=== PATIENT | male | born 2000 | race Hispanic/Latino ===

== ENCOUNTER 2022-03-12 13:19 | Emergency (ER) | payer OTHER ==
--- NOTE | 2022-03-12 13:30 | EDPHYS ---
Physician Documentation [facility] Name: Zack Rodrigues Age: 21 yrs Sex: Male : 2000 Arrival Date: 03/12/2022 Time: 13:23 Bed 25 Private MD: ED Physician Brock Augustine HPI: 03/12 13:27 This 21 yrs old Male presents to ER via Unassigned with complaints of Suicidal ms3 Ideation. 13:27 The patient presents to the emergency department with suicide ideation, and the patient ms3 has a plan, to overdose with medications. Onset: The symptoms/episode began/occurred today. Past psychiatric history: Prior diagnosis: schizophrenia, Psychiatric medications include: unknown, the patient has a previous inpatient psychiatric history, the patient's last psychiatric treatment was At inpatient psychiatric facility. Associated signs and symptoms: Pertinent negatives: abdominal pain, headache, nausea, shortness of breath, vomiting. Severity of symptoms: At their worst the symptoms were moderate in the emergency department the symptoms are unchanged Pain is currently a 0 / 10. [facility] states patient took 5 Fluoxetine pills.. Historical: - Allergies: 13:33 No Known Allergies; eh3 - Home Meds: 13:33 Fluoxetine Oral [Active]; eh3 - PMHx: 13:33 PTSD; Schizophrenia; eh3 - PSHx: 13:33 Appendectomy; eh3 - Immunization history:: Adult Immunizations not up to date. - Social history:: Smoking status: Patient reports the use of cigarette tobacco products, denies chronic smoking, but will smoke occasionally, Patient uses street drugs, marijuana, Patient/guardian denies using alcohol. ROS: 13:27 Constitutional: Negative for fever, and chills. Neck: Negative for injury, pain, and ms3 swelling, Cardiovascular: Negative for chest pain, and palpitations. Respiratory: Negative for shortness of breath, cough, wheezing, and pleuritic chest pain, Abdomen/GI: Negative for abdominal pain, nausea, vomiting, diarrhea, and constipation, MS/Extremity: Negative for injury and deformity, Skin: Negative for injury, rash, and discoloration. 13:27 Psych: Positive for suicidal ideation. 13:27 All other systems are negative. Exam: 13:27 Constitutional: This is a well developed, well nourished patient who is awake, alert, ms3 and in no acute distress. Head/Face: Normocephalic, atraumatic. Eyes: Pupils equal round and reactive to light, extra-ocular motions intact. Lids and lashes normal. Conjunctiva and sclera are non-icteric and not injected. Periorbital areas with no swelling, redness, or edema. Chest/axilla: Normal chest wall appearance and motion. Nontender with no deformity. Cardiovascular: Regular rate and rhythm with a normal S1 and S2. No gallops, murmurs, or rubs. Normal PMI, no JVD. No pulse deficits. Respiratory: Lungs have equal breath sounds bilaterally, clear to auscultation and percussion. No rales, rhonchi or wheezes noted. No increased work of breathing, no retractions or nasal flaring. Abdomen/GI: Soft, non-tender, with normal bowel sounds. No distension or tympany. No guarding or rebound. No evidence of tenderness throughout. Skin: Warm, dry with normal turgor. Normal color with no rashes, no lesions, and no evidence of cellulitis. MS/ Extremity: Pulses equal, no cyanosis. Neurovascular intact. Full, normal range of motion. 14:05 ECG was reviewed by the Attending Physician. mt3 Vital Signs: 13:24 BP 110 / 84; Pulse 87; Resp 18; Temp 98.3(O); Pulse Ox 99% on R/A; Weight 74.84 kg; [facility] Height 5 ft. 7 in. (170.18 cm); 18:00 BP 113 / 60; Pulse 83; Resp 18; Temp 98.5(O); Pulse Ox 97% on R/A; [facility] 13:24 Body Mass Index 25.84 (74.84 kg, 170.18 cm) [facility] MDM: 13:25 Patient medically screened. kb 13:27 Differential diagnosis: acute psychotic break, depression, psychosis secondary to ms3 non-compliance. 16:44 Data reviewed: vital signs, nurses notes, lab test result(s), EKG, and as a result, I mt3 will transfer patient. Counseling: I had a detailed discussion with the patient and/or guardian regarding: the historical points, exam findings, and any diagnostic results supporting the discharge/admit diagnosis, lab results, the need to transfer to another facility. ED course: Patient accepted to Dr Jennifer Nagy. 03/12 13:25 Order name: Acetaminophen; Complete Time: 15:32 kb 03/12 13:25 Order name: Basic Metabolic Panel; Complete Time: 15:32 kb 03/12 13:25 Order name: CBC with Diff; Complete Time: 15:32 kb 03/12 13:25 Order name: ETOH Level; Complete Time: 15:32 kb 03/12 13:25 Order name: Hepatic Function; Complete Time: 15:32 kb 03/12 13:25 Order name: PT-INR; Complete Time: 15:32 kb 03/12 13:25 Order name: Ptt, Activated; Complete Time: 15:32 kb 03/12 13:25 Order name: Salicylate; Complete Time: 15:32 kb 03/12 13:25 Order name: Urine Drug Screen; Complete Time: 15:32 kb 03/12 13:25 Order name: EKG; Complete Time: 13:28 kb 03/12 13:25 Order name: EKG - Nurse/Tech; Complete Time: 14:12 kb 03/12 13:27 Order name: SARS RAPID; Complete Time: 15:32 ms3 03/12 13:54 Order name: Urine Dipstick-Ancillary; Complete Time: 15:32 EDMS 03/12 14:16 Order name: Diet Finger Food; Complete Time: 14:16 eh3 03/12 13:25 Order name: IV Saline Lock; Complete Time: 14:12 kb 03/12 13:25 Order name: Labs collected and sent; Complete Time: 14:12 kb 03/12 13:25 Order name: Suicide Precautions; Complete Time: 13:39 kb 03/12 13:25 Order name: Suicide Screening ([place]); Complete Time: 13:39 kb 03/12 13:25 Order name: Urine Dipstick-Ancillary (obtain specimen); Complete Time: 14:18 kb EC:05 Rate is 75 beats/min. Rhythm is regular. QRS [place] is Normal. [place] interval is normal. QRS ms3 interval is normal. Clinical impression: Normal ECG. Interpreted by me. Reviewed by me. Administered Medications: No medications were administered Disposition Summary: 03/12/22 13:30 Transfer Ordered Transfer Location: [facility] Facility ms3 Reason: Higher level of care ms3 Condition: Stable ms3 Problem: new ms3 Symptoms: are unchanged ms3 Accepting Physician: Dr Willson(03/12/22 18:14) ss Diagnosis - Suicidal ideations ms3 - Depression ms3 Forms: - Medication Reconciliation Form ms3 - SBAR form ms3 Signatures: Dispatcher [employer] EDKristina Escobar, PRESCHOOL PRINCIPAL-C PRESCHOOL PRINCIPAL-Tiki Martin RN RN ss Brock Augustine, DO ms3 Elvi Patino RN RN eh3 Corrections: (The following items were deleted from the chart) 16:44 13:30 Dr cedillo ms3 18:14 16:44 Dr Willson ms3 ss
--- OUTSIDE RECORDS SUMMARY | 2022-03-12 13:39 | XMS REPORT | Continuity of Care Document ---
:2000 Author Organization [facility] t Address [address] [place] [address] Care Team Providers Name Role Phone [place] Aleksander HORNE Primary Care Physician [phone] ALYSSA STRATTON Attending Clinician Unavailable MADIE AMARO Attending Clinician Unavailable Payers Payer Name Policy Type Policy Number Effective Date Expiration Date S ource [employer] [id number] 2018 00:00:00 Problems This patient has no known problems. Allergies, Adverse Reactions, Alerts Allergy Allergy Status Severity Reaction(s) Onset Inactive Treating Comm ents Source Name Type Date Date Clinician No Known DA Active U 2018-03 [facility] No Known DA Active U [facility] 1-28 [facility] Medications This patient has no known medications. Vital Signs Vital Name Observation Time Observation Value Comments Source BP Diastolic 2021-10-23 16:12:00 71 mm[Hg] Weight Measured 2021-10-23 16:12:00 173.80 pounds Height Measured 2021-10-23 16:12:00 67.00 inches Body Temperature 2021-10-23 16:12:00 98.40 degrees Heart Rate 2021-10-23 16:12:00 97.00 /min Respiratory Rate 2021-10-23 16:12:00 16.00 /min BP Systolic 2021-10-23 16:12:00 115 mm[Hg] Procedures This patient has no known procedures. Plan of Care Planned Activity Planned Date Details Comments Source Goal Plan of Care Note [code = 94107-8] Goal Plan of Care Note [code = 28028-2] Goal Plan of Care Note [code = 87917-5] Goal Plan of Care Note [code = 77241-7] Goal Plan of Care Note [code = 19399-8] Encounters Start End Encounter Admission Attending Care Care Encounter Source Date/Time Date/Time Type Type Clinicians Facility Department ID 2018-12-20 Inpatient [facility] [id number] H arris 11:48:06 Health 2021-10-23 2021-10-23 Outpatient [id number] 00:00:00 00:00:00 Visit [id number] 2021-07-05 2021-07-05 Emergency [facility] [id number] [place] 12:28:00 13:04:00 [facility] 2019-11-15 2019-11-16 Emergency E MADIE AMARO [facility] [address] 23:38:00 02:15:00 l [facility] l [facility] 2019-04-27 2019-04-27 Outpatient [facility] [id number] [place] 00:00:00 00:00:00 [facility] 2019-04-07 2019-04-07 Outpatient [facility] [id number] [place] 00:00:00 00:00:00 [facility] 2019-03-10 2019-03-10 Outpatient [facility] [id number] [place] 00:00:00 00:00:00 [facility] 2019-03-08 2019-03-08 Outpatient [facility] [id number] [place] 13:53:33 13:53:33 Health 2019-03-05 2019-03-05 Outpatient [facility] [id number] [place] 00:00:00 00:00:00 Health 2019-01-19 2019-01-19 Outpatient [facility] [id number] [place] 00:00:00 00:00:00 Health 2019-01-14 2019-01-14 Outpatient [facility] [id number] [place] 00:00:00 00:00:00 Health 2019-01-07 2019-01-07 Outpatient [facility] [id number] [place] 00:00:00 00:00:00 Health 2019-01-05 2019-01-05 Outpatient [facility] [id number] [place] 00:00:00 00:00:00 Health 2018-12-22 2018-12-22 Outpatient [facility] [id number] [place] 13:30:28 13:30:28 Health 2018-12-21 2018-12-21 Outpatient [facility] [id number] [place] 13:33:37 13:33:37 Health 2018-12-19 2018-12-19 Emergency [facility] [id number] [place] 16:54:26 16:54:26 Health Results Test Description Test Time Test Comments Results Result Comments Source HEMOGLOBIN A1c 2021-10-25 07:05:17 Test Item Value Reference Range Interpretation Comme nts HEMOGLOBIN A1c (test code = 35245) 5.3 % 4.2-5.6 CBC W/AUTO DIFF WITH [id number] 06:02:55 Test Item Value Reference Range Interpretation Comments WBC (test code = 6.0 K/UL 3.5-11.0 1001) RBC (test code = 5.23 M/UL 4.50-6.10 1002) HEMOGLOBIN (test code 15.8 G/DL 13.5-17.0 = 1003) HEMATOCRIT (test code 46.5 % 40.0-51.0 = 1004) MCV (test code = 88.9 fL 80.0-99.0 1005) MCH (test code = 30.2 PG 25.0-33.0 1006) MCHC (test code = 34.0 G/DL 31.0-36.0 1007) RDW (test code = 12.8 % 11.5-15.0 1038) NEUTROPHILS (test 54.8 % code = 1008) LYMPHOCYTES (test 29.8 % code = 1010) MONOCYTES (test code 12.9 % = 1011) EOSINOPHILS (test 0.5 % code = 1012) BASOPHILS (test code 1.2 % = 1013) IMMATURE GRANULOCYTES 0.8 % (test code = 1036) NUCLEATED RBCS (test 0.0 /100 WBC'S See_Comment [Aut omated code = 1065) message] The sy stem which generated this result transmitted reference range : 0.0. The refere nce range was not u sed to interpret th is result as normal/abnormal . PLATELET COUNT (test 367 K/UL 130-400 code = 1015) ABSOLUTE NEUTROPHILS 3.28 K/UL 1.50-7.50 (test code = 1066) ABSOLUTE LYMPHOCYTES 1.78 K/UL 1.00-4.00 (test code = 1067) ABSOLUTE MONOCYTES 0.77 K/UL 0.20-1.00 (test code = 1068) ABSOLUTE EOSINOPHILS 0.03 K/UL 0.00-0.50 (test code = 1040) ABSOLUTE BASOPHILS 0.07 K/UL 0.00-0.20 (test code = 1069) ABS IMMATURE 0.05 K/UL 0.00-0.10 GRANULOCYTES (test code = 1020) ABS NUCLEATED RBCS 0.00 K/UL 0.00-0.11 (test code = 60754) COMPREHENSIVE METABOLIC [id number] 05:56:45 Test Item Value Reference Range Interpretation Comments GLUCOSE (test code = 71 MG/DL 70-99 2216) BUN (test code = 10 MG/DL 6-20 2207) CREATININE (test 1.01 MG/DL 0.80-1.40 code = 2214) eGFR (2020 CKD-EPI) 108 >60 (test code = 14352) ML/MIN/1.73 CALC BUN/CREAT (test 10 RATIO 6-28 code = 2235) SODIUM (test code = 140 MEQ/L 299-644 6393) POTASSIUM (test code 4.0 MEQ/L 3.5-5.4 = 2227) CHLORIDE (test code 101 MEQ/L 95-107 = 2214) CARBON DIOXIDE (test 28 MEQ/L 19-31 code = 2206) CALCIUM (test code = 9.7 MG/DL 8.5-10.5 2208) PROTEIN, TOTAL (test 7.1 G/DL 6.1-8.3 code = 2229) ALBUMIN (test code = 5.0 G/DL 3.5-5.2 2200) CALC GLOBULIN (test 2.1 G/DL 1.9-3.7 code = 2240) CALC A/G RATIO (test 2.4 RATIO 1.0-2.6 code = 2234) BILIRUBIN, TOTAL 0.2 MG/DL See_Comment [Automated message] (test code = 2207) The [employer] which generated this result transmit luann reference range : <=1.2. The refe rence range was not u sed to interpret th is result as normal/abnormal . ALKALINE PHOSPHATASE 83 U/L 42-122 (test code = 4) AST (test code = 27 U/L 2217) ALT (test code = 32 U/L 2218) LIPID [id number] 05:56:45 Test Item Value Reference Range Interpretation Comments CHOLESTEROL (test 181 MG/DL <200 code = 2210) TRIGLYCERIDES (test 93 MG/DL <150 code = 2232) HDL CHOLESTEROL (test 61 MG/DL >39 code = 2220) CALC LDL CHOL (test 101 MG/DL <100 H NOTE: C ALCULATED LDL code = 2237) IS BASED ON NATALIE-GONG METHOD WHICHINCLUDES ADJUSTABLE TRIGLYCERIDE:VL DL CHOLESTEROL RAT IO.THIS FACTOR VARIES B Y MEASURED TRIGLY CERIDE AND NON-HDLCHOL ESTEROL CONCENTRATIONS WITH INCREASED CALCU LATED LDL SEENIN HIGH ER TRIGLYCERIDE OR LOWER NON-HDL SPECIME NS. FOR MOREINFORMATION , SEE CLIENT ANNOUNCE MENT AT [email or web address] RISK RATIO LDL/HDL 1.66 RATIO <3.55 UNLESS O THERWISE (test code = 2237) INDICATED , ALL TESTING PERFORMED [facility], [address] DIRECTOR: CATHERINE SMITH M.D. CLIA NUMBER [id number] CAP ACCREDITATION N O. [id number] HEMOGLOBIN [id number] 00:00:00 Test Item Value Reference Range Interpretation Comments HEMOGLOBIN A1c (test code = 93590) 5.3 % HEMOGLOBIN [id number] 00:00:00 Test Item Value Reference Range Interpretation Comments HEMOGLOBIN A1c (test code = 27070) 5.3 % CBC W/AUTO [id number] 00:00:00 Test Item Value Reference Range Interpretation Comments WBC (test code = 1001) 6.0 K/UL RBC (test code = 1002) 5.23 M/UL HEMOGLOBIN (test code = 1003) 15.8 G/DL HEMATOCRIT (test code = 1004) 46.5 % MCV (test code = 1005) 88.9 fL MCH (test code = 1006) 30.2 PG MCHC (test code = 1007) 34.0 G/DL RDW (test code = 1038) 12.8 % NEUTROPHILS (test code = 1008) 54.8 % LYMPHOCYTES (test code = 1010) 29.8 % MONOCYTES (test code = 1011) 12.9 % EOSINOPHILS (test code = 1012) 0.5 % BASOPHILS (test code = 1013) 1.2 % IMMATURE GRANULOCYTES (test 0.8 % code = 1036) NUCLEATED RBCS (test code = 0.0 /100WBC'S 1065) PLATELET COUNT (test code = 367 K/UL 1015) ABSOLUTE NEUTROPHILS (test code 3.28 K/UL = 1066) ABSOLUTE LYMPHOCYTES (test code 1.78 K/UL = 1067) ABSOLUTE MONOCYTES (test code = 0.77 K/UL 1068) ABSOLUTE EOSINOPHILS (test code 0.03 K/UL = 1040) ABSOLUTE BASOPHILS (test code = 0.07 K/UL 1069) ABS IMMATURE GRANULOCYTES (test 0.05 K/UL code = 1020) ABS NUCLEATED RBCS (test code = 0.00 K/UL 68455) CBC W/AUTO [id number] 00:00:00 Test Item Value Reference Range Interpretation Comments WBC (test code = 1001) 6.0 K/UL RBC (test code = 1002) 5.23 M/UL HEMOGLOBIN (test code = 1003) 15.8 G/DL HEMATOCRIT (test code = 1004) 46.5 % MCV (test code = 1005) 88.9 fL MCH (test code = 1006) 30.2 PG MCHC (test code = 1007) 34.0 G/DL RDW (test code = 1038) 12.8 % NEUTROPHILS (test code = 1008) 54.8 % LYMPHOCYTES (test code = 1010) 29.8 % MONOCYTES (test code = 1011) 12.9 % EOSINOPHILS (test code = 1012) 0.5 % BASOPHILS (test code = 1013) 1.2 % IMMATURE GRANULOCYTES (test 0.8 % code = 1036) NUCLEATED RBCS (test code = 0.0 /100WBC'S 1065) PLATELET COUNT (test code = 367 K/UL 1015) ABSOLUTE NEUTROPHILS (test code 3.28 K/UL = 1066) ABSOLUTE LYMPHOCYTES (test code 1.78 K/UL = 1067) ABSOLUTE MONOCYTES (test code = 0.77 K/UL 1068) ABSOLUTE EOSINOPHILS (test code 0.03 K/UL = 1040) ABSOLUTE BASOPHILS (test code = 0.07 K/UL 1069) ABS IMMATURE GRANULOCYTES (test 0.05 K/UL code = 1020) ABS NUCLEATED RBCS (test code = 0.00 K/UL 31674) COMPREHENSIVE METABOLIC [id number] 00:00:00 Test Item Value Reference Range Interpretation Comments GLUCOSE (test code = 2217) 71 MG/DL BUN (test code = 2208) 10 MG/DL CREATININE (test code = 2214) 1.01 MG/DL eGFR (2020 CKD-EPI) (test 108 ML/MIN/1.73 code = 19605) CALC BUN/CREAT (test code = 10 RATIO 2235) SODIUM (test code = 2231) 140 MEQ/L POTASSIUM (test code = 2228) 4.0 MEQ/L CHLORIDE (test code = 2215) 101 MEQ/L CARBON DIOXIDE (test code = 28 MEQ/L 2205) CALCIUM (test code = 2209) 9.7 MG/DL PROTEIN, TOTAL (test code = 7.1 G/DL 2228) ALBUMIN (test code = 2201) 5.0 G/DL CALC GLOBULIN (test code = 2.1 G/DL 0) CALC A/G RATIO (test code = 2.4 RATIO 4) BILIRUBIN, TOTAL (test code = 0.2 MG/DL 2206) ALKALINE PHOSPHATASE (test 83 U/L code = 2204) AST (test code = 2218) 27 U/L ALT (test code = 2219) 32 U/L LIPID [id number] 00:00:00 Test Item Value Reference Range Interpretation Comments CHOLESTEROL (test code = 2210) 181 MG/DL TRIGLYCERIDES (test code = 2232) 93 MG/DL HDL CHOLESTEROL (test code = 2220) 61 MG/DL CALC LDL CHOL (test code = 2237) 101 MG/DL RISK RATIO LDL/HDL (test code = 1.66 RATIO 2238) COMPREHENSIVE METABOLIC [id number] 00:51:00 Test Item Value Reference Range Interpretation Comments SODIUM (test code = NA) 142 mmol/l 134.0-147.0 N POTASSIUM (test code = K) 3.4 mmol/L 3.6-5.2 L CHLORIDE (test code = CL) 102 mmol/l 98.0-107.0 N CARBON DIOXIDE (test code = CO2) 27.6 mmol/l 21.0-33.0 N ANION GAP (test code = GAP) 15.8 0-20 N GLUCOSE (test code = GLU) 110 mg/dl 70.0-110.0 N BLOOD UREA NITROGEN (test code = 10 mg/dl 7.0-18.0 N BUN) CREATININE (test code = CREAT) 0.86 mg/dL 0.60-1.30 N GFR NON BLACK (test code = 120 mL/min 110-120 N GFRNONBLACK) GFR BLACK (test code = GFRBLACK) 146 mL/min 133-145 H TOTAL PROTEIN (test code = PROT) 7.4 GM/DL 6.0-8.1 N ALBUMIN (test code = ALB) 4.3 gm/dL 3.2-4.7 N CALCIUM (test code = CA) 8.8 mg/dl 8.0-10.5 N BILIRUBIN TOTAL (test code = 0.2 mg/dl 0.0-1.0 N BILT) SGOT/AST (test code = AST) 16 Units/L 15.0-37.0 N SGPT/ALT (test code = ALT) 22 Units/L 12.0-78.0 N ALKALINE PHOSPHATASE TOTAL (test 81 Units/L 50.0-136.0 N code = ALKP) [id number] 00:51:00 Test Item Value Reference Range Interpretation Comments ACETAMINOPHEN (test <2.0 mcg/ml 10.0-30.0 L Result i s in code = ACET) Microgram per milliliter. [id number] 00:51:00 Test Item Value Reference Range Interpretation Comments SALICYLATE (test code = NATASHA) 0.6 mg/dl 2.8-20.0 L [id number] 00:51:00 Test Item Value Reference Range Interpretation Comments ALCOHOL (test code 0.00 gm/dL 0.00-0.00 N ETHYL ALC OHOL VALUES - = ALC) INTERPRETATION: 0.050 GM/DL - NOT INT OXICATED 0.100 GM/DL - INTOXICATED 0.3 50-0.450 GM/DL - SEVEREL Y INTOXICATED 0.5 50 GM/DL- FATAL INTOXICAT ION COMPREHENSIVE METABOLIC [id number] 00:43:00 Test Item Value Reference Range Interpretation Comments SODIUM (test code = NA) 142 mmol/l 134.0-147.0 N POTASSIUM (test code = K) 3.4 mmol/L 3.6-5.2 L CHLORIDE (test code = CL) 102 mmol/l 98.0-107.0 N CARBON DIOXIDE (test code = CO2) 27.6 mmol/l 21.0-33.0 N ANION GAP (test code = GAP) 15.8 0-20 N GLUCOSE (test code = GLU) mg/dl 70.0-110.0 BLOOD UREA NITROGEN (test code = mg/dl 7.0-18.0 BUN) CREATININE (test code = CREAT) mg/dL 0.60-1.30 GFR NON BLACK (test code = mL/min 110-120 GFRNONBLACK) GFR BLACK (test code = GFRBLACK) mL/min 133-145 TOTAL PROTEIN (test code = PROT) gm/dL 6.4-8.2 ALBUMIN (test code = ALB) gm/dl 3.2-4.7 CALCIUM (test code = CA) mg/dl 8.0-10.5 BILIRUBIN TOTAL (test code = mg/dl 0.0-1.0 BILT) SGOT/AST (test code = AST) Units/L 15.0-37.0 SGPT/ALT (test code = ALT) Units/L 12.0-78.0 ALKALINE PHOSPHATASE TOTAL (test Units/L 50.0-136.0 code = ALKP) [id number] 00:43:00 Test Item Value Reference Range Interpretation Comments ACETAMINOPHEN (test code = ACET) mcg/ml 10.0-30.0 [id number] 00:43:00 Test Item Value Reference Range Interpretation Comments SALICYLATE (test code = NATASHA) mg/dl 2.8-20.0 [id number] 00:43:00 Test Item Value Reference Range Interpretation Comments ALCOHOL (test code = ALC) gm/dL 0.00-0.00 CBC W/AUTO [id number] 00:41:00 Test Item Value Reference Range Interpretation Comments WHITE BLOOD CELL (test code = 8.9 K/mm3 4.5-11.0 N WBC) RED BLOOD CELL (test code = 4.90 M/mm3 4.40-5.90 N RBC) HEMOGLOBIN (test code = HGB) 15.1 gm/dL 13.0-17.0 N HEMATOCRIT (test code = HCT) 44.4 % 36.0-48.0 N MEAN CELL VOLUME (test code = 90.6 UM3 80.0-94.0 N MCV) MEAN CELL HGB (test code = MCH) 30.8 UUG 25.5-32.5 N MEAN CELL HGB CONCETRATION 34.0 gm/dL 29.0-35.5 N (test code = MCHC) RED CELL DISTRIBUTION WIDTH 12.9 % 11.5-15.0 N (test code = RDW) RED CELL DISTRIBUTION WIDTH SD 42.5 fL 34.8-50.2 N (test code = RDW-SD) PLATELET COUNT (test code = 345 K/mm3 150-400 N PLT) MEAN PLATELET VOLUME (test code 9.8 fl 7.4-10.4 N = MPV) NEUTROPHIL % (test code = NT%) 63.3 % 49.0-76.0 N IMMATURE GRANULOCYTE % (test 0.2 % 0.0-0.4 N code = IG%) LYMPHOCYTE % (test code = LY%) 26.0 % 23.0-38.0 N MONOCYTE % (test code = MO%) 8.7 % 1.0-10.0 N EOSINOPHIL % (test code = EO%) 1.0 % 1.0-5.0 N BASOPHIL % (test code = BA%) 0.8 % 0.0-1.0 N NEUTROPHIL # (test code = NT#) 5.6 K/mm3 2.4-6.3 N IMMATURE GRANULOCYTE # (test 0.02 x10 3/uL 0.00-0.07 N code = IG#) LYMPHOCYTE # (test code = LY#) 2.3 K/mm3 1.2-4.0 N MONOCYTE # (test code = MO#) 0.8 K/mm3 0.0-0.6 H EOSINOPHIL # (test code = EO#) 0.1 K/MM3 0.0-0.7 N BASOPHIL # (test code = BA#) 0.1 K/mm3 0.0-0.2 N DRUGS OF ABUSE SCREEN [id number] 00:22:00 Test Item Value Reference Interpretation Comments Range URN COCAINE (test NEGATIVE NEGATIVE Cocaine cu t-off code = COCAURN) concentratio n: 300 ng/mL URN CANNABINOIDS POSITIVE NEGATIVE A UNCONFIRME D INITIAL (test code = SCREENING ONLY; SUGGEST CANNABURN) ADDITIONALCONFI RMATORY TESTING.Cannabi noids cut-off concent ration: 50 ng/mL URN AMPHETAMINE NEGATIVE NEGATIVE Amphetamine cut-off (test code = concentration: 1000 ng/mL AMPHETURN) URN BARBITURATE NEGATIVE NEGATIVE Barbiturate cut-off (test code = concentration: 200 ng/mL BARBITURN) URN BENZODIAZEPINE NEGATIVE NEGATIVE Benzodiaz epine cut-off (test code = concentration: 200 ng/mL BENZOURN) URN OPIATES (test NEGATIVE NEGATIVE Opiates cu t-off code = OPIATURN) concentrati on: 200 ng/mL URN PHENCYCLIDINE NEGATIVE NEGATIVE Phencyclid ine(PCP) cut-off (PCP) (test code = concentra tion: 25 ng/ml PHENCURN) URN METHADONE (test NEGATIVE NEGATIVE Methadon e cut-off code = METHAURN) concentrati on: 300 ng/mL
[2022-03-12 13:54] LABS: Urine Blood Negative (Negative); Urine Glucose Negative (Negative); Urine Protein Negative (Negative); Urine pH 8.5 (5.0-7.0)
[2022-03-12 14:10] LABS: Absolute Lymphocytes (CBC) 1.7 K/uL (0.7-4.9); Hematocrit 45.8 % (39.6-49.0); Lymphocytes % 25.3 % (15.3-44.8); MCV 89.7 fL (80-100); MPV 8.1 fL (7.6-11.3); RBC Red Blood Cell Count 5.11 M/uL (4.33-5.43)
[2022-03-12 14:19] LABS: Barbiturates NEGATIVE (NEGATIVE); Benzodiazepines NEGATIVE (NEGATIVE); Cocaine NEGATIVE (NEGATIVE); METHAMPHETAM NEGATIVE (NEGATIVE); Methadone NEGATIVE (NEGATIVE); Opiates NEGATIVE (NEGATIVE); Phencyclidine NEGATIVE (NEGATIVE); THC Cannibis POSITIVE (NEGATIVE)
[2022-03-12 14:26] LABS: SARS-CoV-2 Antigen Rapid Res Negative (Negative)
--- NOTE | 2022-03-12 14:33 | EKG ---
Test Date: 2022-03-12 Test Time: 13:57:45 Road Builder: LEROY MEASUREMENT RESULTS: Intervals: Rate: 75 [place]: 140 QRSD: 86 QT: 378 QTc: 422 [place]: P: 19 [place]: 140 QRS: 89 T: 51 INTERPRETIVE STATEMENTS: Normal sinus rhythm ST elevation, probably due to early repolarization Borderline ECG No previous ECG available for comparison Electronically Signed On 03-12-22 14:32:51 FLOSSER by Michael Reza
[2022-03-12 15:10] LABS: ALT/SGPT 27 U/L (16-61); AST/SGOT 19 U/L (15-37); Albumin 4.2 g/dL (3.4-5.0); Alkaline Phosphatase 73 U/L (45-117); BUN Blood Urea Nitrogen 10 mg/dL (7-18); Bicarbonate 27 mmol/L (21-32); Bilirubin Direct 0.1 mg/dL (0-0.2); Bilirubin Total 0.4 mg/dL (0.2-1.0); Glomerular Filtration Rate 130 ml/min (=/>90); Glucose Level 84 mg/dL (74-106); Potassium 4.2 mmol/L (3.5-5.1); Sodium Level 138 mmol/L (136-145)
--- NOTE | 2022-03-12 18:14 | ER ---
Nurse's Notes [facility] Name: Zack Rodrigues Age: 21 yrs Sex: Male : 2000 Arrival Date: 03/12/2022 Time: 13:23 Bed 25 Private MD: Diagnosis: Suicidal ideations;Depression Presentation: 03/12 13:24 Chief complaint: EMS states: toned out for suicidal ideation. Pt states "my mom is eh3 always playing mind games with me" Hx of schizophrenia. Took 5 fluoxetine HOG [employer]ER. Coronavirus screen:. Ebola Screen: No symptoms or risks identified at this time. Initial Sepsis Screen: Does the patient meet any 2 criteria? No. Patient's initial sepsis screen is negative. Does the patient have a suspected source of infection? No. Patient's initial sepsis screen is negative. Risk Assessment: Do you want to hurt yourself or someone else? Patient reports desire/thoughts of hurting themselves or someone else. Provider notified. Onset of symptoms was March 12, 2022. 13:24 Method Of Arrival: EMS: [place] [id number] 13:24 Acuity: GABRIELA 2 3 Triage Assessment: 13:24 General: Appears in no apparent distress. comfortable, Behavior is cooperative, eh3 anxious. Pain: Complains of pain in "all over my body". EENT: No signs and/or symptoms were reported regarding the EENT system. Neuro: Level of Consciousness is awake, alert, obeys commands, Oriented to person, place, time, situation. Cardiovascular: Capillary refill < 3 seconds Patient's skin is warm and dry. Respiratory: Airway is patent Respiratory effort is even, unlabored, Respiratory pattern is regular, symmetrical. GI: No signs and/or symptoms were reported involving the gastrointestinal system. Abdomen is flat, non-distended. : No signs and/or symptoms were reported regarding the genitourinary system. Derm: No signs and/or symptoms reported regarding the dermatologic system. Musculoskeletal: No signs and/or symptoms reported regarding the musculoskeletal system. Circulation, motion, and sensation intact. Range of motion: intact in all extremities. Historical: - Allergies: 13:33 No Known Allergies; eh3 - Home Meds: 13:33 Fluoxetine Oral [Active]; eh3 - PMHx: 13:33 PTSD; Schizophrenia; eh3 - PSHx: 13:33 Appendectomy; eh3 - Immunization history:: Adult Immunizations not up to date. - Social history:: Smoking status: Patient reports the use of cigarette tobacco products, denies chronic smoking, but will smoke occasionally, Patient uses street drugs, marijuana, Patient/guardian denies using alcohol. Screenin:24 Abuse screen: Denies threats or abuse. Denies injuries from another. Nutritional eh3 screening: No deficits noted. Tuberculosis screening: No symptoms or risk factors identified. Fall Risk No fall in past 12 months (0 pts). No secondary diagnosis (0 pts). IV access (20 points). Ambulatory Aid- None/Bed Rest/Nurse Assist (0 pts). Gait- Normal/Bed Rest/Wheelchair (0 pts) Mental Status- Oriented to own ability (0 pts). Total Singh Fall Scale indicates No Risk (0-24 pts). 13:24 [facility] ED Fall Risk Assessment (Adult) History of falling in the last 3 months, eh3 including since admission No falls in past 3 months (0 pts) Confusion or Disorientation Yes (5 pts) Intoxicated or Sedated No (0 pts) Impaired Gait No (0 pts) Mobility Assist Device Used No (0 pt) Altered Elimination No (0 pt) Score/Fall Risk Level 3 or more points = High Risk Oriented to surroundings, Maintained a safe environment, Educated pt \\T\\ family on fall prevention, incl call for assistance when getting out of bed, Assessed \\T\\ reinforced patient's understanding of fall precautions, Provided non-skid footwear, Hourly rounding (assess needs \\T\\ fall precautionary measures) done, Used ambulatory aids as needed (educated on \\T\\ assisted with), Used gait belt as appropriate Implemented a Fall Risk Plan of Care, Apply high fall risk patient identification: yellow non skid footwear/ fall signage, Offered frequent toileting (1:1 observation), Remained with patient while ambulating, Utilized family, sitter, or virtual air traffic controller as indicated. Grzegorzy Dumpty Scale Fall Assessment Tool (age< 18yrs) Age 13 years and above (1 pt) Gender Male (2 pts) Diagnosis Psych/ behavioral disorders ( 2 pts) Cognitive Impairments Oriented to own ability (1 pt) Environmental Factors Patient placed in bed (2 pts) Response to Surgery/Sedation/Anesthesia More than 48 hours/ None (1 pt) Medication Usage One of the meds listed above (2 pts) Fall Risk Score/ Level High Fall Risk: >/= 12 points Oriented to surroundings, Maintained a safe environment: age specific bed with railing, Bed in low position \\T\\ wheels locked, Assessed need for side rail use, Locks on all chairs, commodes, stretchers \\T\\ wheelchairs, Rm and paths clutter \\T\\ obstacle free, Proper lighting, Educated pt \\T\\ family on fall prevention, incl. call for assistance when getting out of bed, Assesseed \\T\\ reinforced patient's understanding of fall precautions, Provided non -skid footwear, Hourly rounding (assess needs \\T\\ fall precautionary measures) done, Use of ambulatory aids as needed (educated on \\T\\ assisted with), Used gait belt as appropriate, Implemented a fall risk plan of care, Applied high fall risk patient identification: yellow non-skid footwear/ fall signage, Offered frequent toileting (1:1), Remained with the patient when ambulating, Used family, sitter or virtual air traffic controller as indicated, Patient moved closer to Nurse's station. Assessment: 13:24 Reassessment: No changes from previously documented assessment. See triage assessment. eh3 14:30 Reassessment: Patient appears in no apparent distress at this time. Patient and/or 3 family updated on plan of care and expected duration. Pain level reassessed. Patient is alert, oriented x 3, equal unlabored respirations, skin warm/dry/pink. 15:30 Reassessment: Patient appears in no apparent distress at this time. Patient and/or 3 family updated on plan of care and expected duration. Pain level reassessed. Patient is alert, oriented x 3, equal unlabored respirations, skin warm/dry/pink. 16:00 Reassessment: Nurse to nurse report called to [place] at [facility]. 3 16:30 Reassessment: Patient and/or family updated on plan of care and expected duration. Pain eh3 level reassessed. Patient is alert, oriented x 3, equal unlabored respirations, skin warm/dry/pink. 17:30 Reassessment: Patient and/or family updated on plan of care and expected duration. Pain eh3 level reassessed. Patient is alert, oriented x 3, equal unlabored respirations, skin warm/dry/pink. Psych: 13:24 [place] Suicide Severity Screening: In the past month, have you wished you were eh3 or wished you could go to sleep and not wake up? Patient responds "yes." "In the past month, have you actually had any thoughts of killing yourself?" Patient responds "no." "In your lifetime, have you ever done anything, started to do anything, or prepared to do anything to end your life?" Patient responds "no.". Subjective: Patient's mood is sad, Delusions are denied, Hallucinations are denied Having thoughts of suicide. Denies suicidal plan. Objective: Patient is cooperative, Speech is normal, Affect is appropriate. Interventions: Removed personal items and placed in bag. Searched person for dangerous items. Urine collected and sent for urine drug test. Belonging list filled out. Safety Checks: Personal items have been removed. Door is open. Patient uses marijuana 2-4 joints daily Last use was 1 days ago. Commitment: Patient will be a voluntary commitment. Vital Signs: 13:24 BP 110 / 84; Pulse 87; Resp 18; Temp 98.3(O); Pulse Ox 99% on R/A; Weight 74.84 kg; 3 Height 5 ft. 7 in. (170.18 cm); 18:00 BP 113 / 60; Pulse 83; Resp 18; Temp 98.5(O); Pulse Ox 97% on R/A; eh3 13:24 Body Mass Index 25.84 (74.84 kg, 170.18 cm) [facility] ED Course: 13:23 Patient arrived in ED. 3 13:24 Arm band placed on left wrist. 3 13:24 Patient has correct armband on for positive identification. Bed in low position. Call [facility] light in reach. Side rails up X2. Placed in paper scrubs. Sitter at bedside. Door closed. Noise minimized. Lights dimmed. Warm blanket given. Patient is placed in psych hold. 13:24 Valuables inventory done. 3 13:25 Brock Augustine DO is Attending Physician. kb 13:33 Triage completed. 3 13:47 Initial lab(s) drawn, by me, sent to lab. Urine collected: COVID swab sent to lab. tm3 Inserted saline lock: 20 gauge in left antecubital area, using aseptic technique. 14:00 EKG done, by ED staff. tm3 14:12 Elvi Patino, RN is Primary Nurse. eh3 16:57 pt accepted in transfer to [facility] by Dr Rodriguez admin approval given bd by Alvina calderon. 18:00 No provider procedures requiring assistance completed. Patient transferred, IV remains eh3 in place. Administered Medications: No medications were administered Medication: 18:00 VIS not applicable for this client. 3 Outcome: 13:30 ER care complete, transfer ordered by MD. ms3 18:00 Transferred by ground EMS Note: [place] [id number] 18:00 Condition: stable 18:00 Instructed on the need for admit. 18:14 Patient left the ED. Signatures: Kristina Ray, SEWING MACHINIST-C SEWING MACHINIST-Ckb Devika Dove, Parker tm3 Tiki Duval, ARNEL RN Brock Augustine DO DO ms3 Elvi Patino, RN RN 3 Corrections: (The following items were deleted from the chart) 14:37 13:24 Acuity: GABRIELA 3 3 3
[2022-03-12 18:29] VITALS: BP 113/60; TEMP 98.5; O2SAT 97
== END 2022-03-12 18:14 ==
LOC: ER 13:19
DX: R45.851 Suicidal ideations (principal); F32.A Depression, unspecified; F20.9 Schizophrenia, unspecified; Z20.822 Contact with and (suspected) exposure to COVID-19
CPT/HCPCS: 36415; 80048; 80076; 80307; 80320; 80329; 81003; 85025; 85610; 85730; 87811; 93005; 99285

== ENCOUNTER 2022-04-08 15:13 | Emergency (ER) | payer OTHER ==
--- OUTSIDE RECORDS SUMMARY | 2022-04-08 15:16 | XMS REPORT | Continuity of Care Document ---
:2000 Author Organization [facility] t Address [address] [place] [address] Care Team Providers Name Role Phone [place] Aleksander HORNE Primary Care Physician [phone] ALYSSA STRATTON Attending Clinician Unavailable MADIE AMARO Attending Clinician Unavailable Payers Payer Name Policy Type Policy Number Effective Date Expiration Date S ource [employer] [id number] 2018 00:00:00 Problems This patient has no [...] Goal Plan of Care Note [code = 20565-2] Goal Plan of Care Note [code = 64269-2] Goal Plan of Care Note [code = 75391-5] Goal Plan of Care Note [code = 60931-7] Goal Plan of Care Note [code = 76143-3] Encounters Start End Encounter Admission Attending Care Care Encounter Source Date/Time Date/Time Type Type Clinicians Facility Department ID 2018-12-20 Inpatient [facility] [id number] H arris 11:48:06 [facility] 2022-03-22 2022-03-22 Emergency [facility] [id number] [place] 16:55:00 17:15:00 [facility] 2021-10-23 2021-10-23 Outpatient [id number] 00:00:00 00:00:00 Visit [id number] 2021-07-05 2021-07-05 Emergency [facility] [id number] [place] 12:28:00 13:04:00 [facility] 2019-11-15 2019-11-16 Emergency [facility] [id number] 23:38:00 02:15:00 [facility] [address] [facility] 2019-04-27 2019-04-[address] [facility] [id number] [place] 00:00:00 00:00:00 [facility] 2019-04-07 2019-04-[address] [facility] [id number] [place] 00:00:00 00:00:00 [facility] 2019-03-10 2019-03-[address] [facility] [id number] [place] 00:00:00 00:00:00 [facility] 2019-03-08 2019-03-[address] [facility] [id number] [place] 13:53:33 13:53:33 Health 2019-03-05 2019-03-[address] [facility] [id number] [place] 00:00:00 00:00:00 [facility] 2019-01-19 2019-01-[address] [facility] [id number] [place] 00:00:00 00:00:00 [facility] 2019-01-14 2019-01-[address] [facility] [id number] [place] 00:00:00 00:00:00 Health 2019-01-07 2019-01-[address] [facility] [id number] [place] 00:00:00 00:00:00 Health 2019-01-05 2019-01-[address] [facility] [id number] [place] 00:00:00 00:00:00 Health 2018-12-22 2018-12-[address] [facility] [id number] [place] 13:30:28 13:30:28 Health 2018-12-21 2018-12-[address] [facility] [id number] [place] 13:33:37 13:33:37 Health 2018-12-19 2018-12-19 Emergency [facility] [id number] [place] 16:54:26 16:54:26 Health Results Test Description Test Time Test Comments Results Result Comments Source HEMOGLOBIN A1c 2021-10-25 07:05:17 Test Item Value Reference Range Interpretation Comme nts HEMOGLOBIN A1c (test code = 62881) 5.3 % 4.2-5.6 CBC W/AUTO DIFF WITH [id number] 06:02:55 Test Item Value Reference Range Interpretation [...] RBCS 0.00 K/UL 0.00-0.11 (test code = 39815) COMPREHENSIVE METABOLIC [id number] 05:56:45 Test Item Value Reference Range Interpretation Comments GLUCOSE (test code = 71 MG/DL 70-99 2216) BUN (test code = 10 MG/DL 6-20 2207) CREATININE (test 1.01 MG/DL 0.80-1.40 code = 2214) eGFR (2020 CKD-EPI) 108 >60 (test code = 80449) ML/MIN/1.73 CALC BUN/CREAT (test 10 RATIO 6-28 code = 2235) SODIUM (test code = 140 MEQ/L 862-439 1068) POTASSIUM (test code 4.0 MEQ/L 3.5-5.4 = 2227) CHLORIDE (test code 101 MEQ/L 95-107 = 2215) CARBON DIOXIDE (test 28 MEQ/L 19-31 code = 2206) CALCIUM (test code = 9.7 MG/DL 8.5-10.5 2208) PROTEIN, TOTAL (test 7.1 G/DL 6.1-8.3 code = 222) ALBUMIN (test code = 5.0 G/DL 3.5-5.2 2200) CALC GLOBULIN (test 2.1 G/DL 1.9-3.7 code = 2240) CALC A/G RATIO (test 2.4 RATIO 1.0-2.6 code = 2234) BILIRUBIN, TOTAL 0.2 MG/DL See_Comment [Automated message] (test code = 2207) The syste m which generated this result transmit luann reference range : <=1.2. The refe rence range was not u sed to interpret th is result as normal/abnormal . ALKALINE PHOSPHATASE 83 U/L 42-122 (test code = 2204) AST (test code = 27 U/L 50 2217) ALT (test code = 32 U/L 50 2218) LIPID [id number] 05:56:45 Test Item Value Reference Range Interpretation [...] MOREINFORMATION , SEE CLIENT ANNOUNCE MENT AT [email or web address] RISK RATIO LDL/HDL 1.66 RATIO <3.55 UNLESS O THERWISE (test code = 2238) INDICATED , ALL TESTING PERFORMED [facility], [id number] [place] [address] DIRECTOR: CATHERINE SMITH M.D. IA NUMBER [id number] CAP ACCREDITATION N O. [id number] HEMOGLOBIN [id number] 00:00:00 Test Item Value Reference Range Interpretation Comments HEMOGLOBIN A1c (test code = 80887) 5.3 % HEMOGLOBIN [id number] 00:00:00 Test Item Value Reference Range Interpretation Comments HEMOGLOBIN A1c (test code = 97812) 5.3 % CBC W/AUTO [id number] 00:00:00 Test Item Value Reference Range Interpretation [...] NUCLEATED RBCS (test code = 0.00 K/UL 10685) CBC W/AUTO [id number] 00:00:00 Test Item Value Reference Range Interpretation [...] NUCLEATED RBCS (test code = 0.00 K/UL 39856) COMPREHENSIVE METABOLIC [id number] 00:00:00 Test Item Value Reference Range Interpretation Comments GLUCOSE (test code = 2217) 71 MG/DL BUN (test code = 2208) 10 MG/DL CREATININE (test code = 2214) 1.01 MG/DL eGFR (2020 CKD-EPI) (test 108 ML/MIN/1.73 code = 91898) CALC BUN/CREAT (test code = 10 RATIO [...] CALC GLOBULIN (test code = 2.1 G/DL 2240) CALC A/G RATIO (test code = 2.4 RATIO 2234) BILIRUBIN, TOTAL (test code = 0.2 MG/DL 2206) ALKALINE PHOSPHATASE (test 83 U/L code = 2204) AST (test code = 2218) 27 U/L ALT (test code = 2219) 32 U/L LIPID [id number] 00:00:00 Test Item Value Reference Range Interpretation Comments CHOLESTEROL (test code = 2210) 181 MG/DL TRIGLYCERIDES (test code = 2232) 93 MG/DL HDL CHOLESTEROL (test code = 2220) 61 MG/DL CALC LDL CHOL (test code = 2237) 101 MG/DL RISK RATIO LDL/HDL (test code = 1.66 RATIO 2238) COMPREHENSIVE METABOLIC [id number] 00:51:00 Test Item Value Reference Range Interpretation [...] 81 Units/L 50.0-136.0 N code = ALKP) [id number] 00:51:00 Test Item Value Reference Range Interpretation Comments ACETAMINOPHEN (test <2.0 mcg/ml 10.0-30.0 L Result i s in code = ACET) Microgram per milliliter. [id number] 00:51:00 Test Item Value Reference Range Interpretation Comments SALICYLATE (test code = NATASHA) 0.6 mg/dl 2.8-20.0 L [id number] 00:51:00 Test Item Value Reference Range Interpretation Comments ALCOHOL (test code 0.00 gm/dL 0.00-0.00 N ETHYL ALC OHOL VALUES - = ALC) INTERPRETATION: 0.050 GM/DL - NOT INT OXICATED 0.100 GM/DL - INTOXICATED 0.3 50-0.450 GM/DL - SEVEREL Y INTOXICATED 0.5 50 GM/DL- FATAL INTOXICAT ION COMPREHENSIVE METABOLIC [id number] 00:43:00 Test Item Value Reference Range Interpretation [...] TOTAL (test Units/L 50.0-136.0 code = ALKP) [id number] 00:43:00 Test Item Value Reference Range Interpretation Comments ACETAMINOPHEN (test code = ACET) mcg/ml 10.0-30.0 [id number] 00:43:00 Test Item Value Reference Range Interpretation Comments SALICYLATE (test code = NATASHA) mg/dl 2.8-20.0 [id number] 00:43:00 Test Item Value Reference Range Interpretation Comments ALCOHOL (test code = ALC) gm/dL 0.00-0.00 CBC W/AUTO [id number] 00:41:00 Test Item Value Reference Range Interpretation [...] K/mm3 0.0-0.2 N DRUGS OF ABUSE SCREEN [id number] 00:22:00 Test Item Value Reference Interpretation Comments [...]
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
--- NOTE | 2022-04-08 16:15 | EDPHYS ---
Physician Documentation [facility] Name: Zack Rodrigues Age: 21 yrs Sex: Male : 2000 Arrival Date: 04/08/2022 Time: 15:14 Bed 19 Private MD: ED Physician Luciano Lester HPI: 04/08 15:22 This 21 yrs old Male presents to ER via EMS with complaints of Anxiety. cp 15:22 The patient presents to the emergency department with argument with mother. Onset: The cp symptoms/episode began/occurred today. Past psychiatric history: Prior diagnosis: schizophrenia, Psychiatric medications include: Wellbutrin, Fluoxetine. 15:22 Associated signs and symptoms: Pertinent negatives: fever, hallucinations, homicidal cp ideation, suicide ideation. Patient presents to ED via EMS after reportedly becoming upset with his mother. Patient denies being homicidal and/or suicidal at this time. Historical: - Allergies: 15:16 No Known Allergies; ld1 - Home Meds: 15:16 Fluoxetine Oral [Active]; Wellbutrin 75 mg Oral tab 1 tab 3 times per day [Active]; ld1 - PMHx: 15:16 PTSD; Schizophrenia; ld1 - PSHx: 15:16 Appendectomy; ld1 - Immunization history:: Adult Immunizations up to date, Client reports receiving the 2nd dose of the Covid vaccine. - Social history:: Smoking status: Patient denies any tobacco usage or history of. Patient uses street drugs, marijuana, Patient/guardian denies using alcohol. ROS: 15:25 Constitutional: Negative for body aches, chills, fever, poor PO intake. cp 15:25 Cardiovascular: Negative for chest pain, edema, palpitations. cp 15:25 Respiratory: Negative for cough, shortness of breath, wheezing. 15:25 Eyes: Negative for injury, pain, redness, and discharge. cp 15:25 ENT: Negative for drainage from ear(s), ear pain, sore throat, difficulty swallowing, difficulty handling secretions. 15:25 Abdomen/GI: Negative for abdominal pain, nausea, vomiting, and diarrhea. 15:25 Neuro: Negative for altered mental status, dizziness, headache, weakness. 15:25 Psych: Negative for auditory hallucinations, visual hallucinations, homicidal ideation, suicide gesture, suicidal ideation. 15:25 All other systems are negative. cp Exam: 15:30 Constitutional: The patient appears in no acute distress, alert, awake, cp non-diaphoretic, non-toxic, well developed, well nourished. 15:30 Head/Face: Normocephalic, atraumatic. cp 15:30 Eyes: Periorbital structures: appear normal, Conjunctiva: normal, no exudate, no injection, Sclera: no appreciated abnormality, Lids and lashes: appear normal, bilaterally. 15:30 ENT: External ear(s): are unremarkable, Nose: is normal, Mouth: Lips: moist, Oral mucosa: moist, Posterior pharynx: Airway: no evidence of obstruction, patent. 15:30 Chest/axilla: Inspection: normal. 15:30 Cardiovascular: Rate: normal, Rhythm: regular. 15:30 Respiratory: the patient does not display signs of respiratory distress, Respirations: normal, no use of accessory muscles, no retractions, labored breathing, is not present. 15:30 Abdomen/GI: Exam negative for discomfort, distension, guarding, Inspection: abdomen appears normal. 15:30 Neuro: Orientation: to person, place \T\ time. Mentation: is normal, Motor: moves all fours, strength is normal. 15:30 Psych: Behavior/mood is cooperative, Patient has no thoughts/intents to harm self or others. Judgement / Insight is normal. Delusions/hallucinations are not present. 15:32 ECG was reviewed by the Attending Physician. cp Vital Signs: 15:14 BP 125 / 82; Pulse 88; Resp 18; Temp 97.8(O); Pulse Ox 98% on R/A; Weight 79.38 kg; ld1 Height 5 ft. 6 in. (167.64 cm); Pain 0/10; 16:10 BP 127 / 78; Pulse 84; Resp 18; Pulse Ox 98% on R/A; ld1 15:14 Body Mass Index 28.25 (79.38 kg, 167.64 cm) ld1 MDM: 15:16 Patient medically screened. cp 15:30 Differential diagnosis: drug withdrawal. acute psychotic break, depression, psychosis cp secondary to non-compliance. 16:14 Data reviewed: vital signs, nurses notes, EKG. cp 16:14 Counseling: I had a detailed discussion with the patient and/or guardian regarding: the cp historical points, exam findings, and any diagnostic results supporting the discharge/admit diagnosis, to return to the emergency department if symptoms worsen or persist or if there are any questions or concerns that arise at home. 04/08 15:20 Order name: EKG; Complete Time: 15:20 cp 04/08 15:20 Order name: EKG - Nurse/Tech; Complete Time: 15:28 cp EC:32 Rate is 74 beats/min. Rhythm is regular. NV interval is normal. QRS interval is normal. cp QT interval is normal. T waves are Inverted in lead aVR. Interpreted by me. Reviewed by me. Administered Medications: No medications were administered Disposition Summary: 04/08/22 16:14 Discharge Ordered Location: Home cp Problem: new cp Symptoms: have improved cp Condition: Stable cp Diagnosis - Encounter for examination and observation for unspecified reason cp Followup: cp - With: Emergency Department - When: As needed - Reason: Worsening of condition Discharge Instructions: - Discharge Summary Sheet cp - Managing Stress, Adult cp - Managing Anxiety, Adult cp Forms: - Medication Reconciliation Form cp - Thank You Letter cp - Antibiotic Education cp - Prescription Opioid Use cp Signatures: Luciano French, FREDERIC PA cp Halina Guillaume, RN RN ld1
[2022-04-08 19:28] VITALS: TEMP 97.8; O2SAT 98
[2022-04-08 19:34] VITALS: BP 127/78
--- NOTE | 2022-04-09 14:24 | EKG ---
Test Date: 2022-04-08 Test Time: 15:26:53 Emt I/99: JO ANN MEASUREMENT RESULTS: Intervals: Rate: 74 DE: 142 QRSD: 92 QT: 382 QTc: 424 Warren: P: 24 DE: 142 QRS: 93 T: 56 INTERPRETIVE STATEMENTS: Normal sinus rhythm Rightward axis Early repolarization Borderline ECG Compared to ECG 03/12/2022 13:57:45 Right-axis deviation now present ST (T wave) deviation no longer present Electronically Signed On 04-09-22 14:22:06 TICKETING CLERK by Michael Reza
== END 2022-04-08 16:46 | disposition home or self-care (01) ==
LOC: ER 15:13
DX: F41.9 Anxiety disorder, unspecified (principal)
CPT/HCPCS: 93005; 99284